=== PATIENT | male | born 1965 | race Asian ===

== ENCOUNTER 2018-05-29 01:38 | Inpatient (IN) | payer OTHER ==
[~2018-05-29] VITALS: Ht 167.6 cm; Wt 67.1 kg
--- NOTE | 2018-05-29 01:47 | ED PSYCHIATRIC COMPLAINT ---
History of Present Illness General Chief Complaint: Psychiatric Related Complaint Stated Complaint: BIBA CRISIS EVAL Source: patient Exam Limitations: no limitations Vital Signs & Intake/Output Vital Signs & Intake/Output Vital Signs Date Time Temp Pulse Resp B/P B/P Pulse O2 O2 Flow FiO2 Mean Ox Delivery Rate 05/29 0557 98.7 84 20 107/65 98 Room Air 05/29 0155 Room Air 05/29 0148 98.8 70 20 151/81 100 Room Air Allergies Uncoded Allergies: Allergy Other NKA Med Allergies NKDA Reconcile Medications No Known Home Medications Triage Note: BIBA EMS FROM HOME. PER EMS PT SENT A TEXT TO HIS SON SAYING HE WAS GOING TO HURT HIMSELF. PTS SON CALLED 911. PT ADMITS TO SI TO EMS. PT DENIES A PLAN. PT DENIES DRUGS AND ALCOHOL. PT CALM AND COOPERATIVE WHILE IN EMS CARE. Triage Nurses Notes Reviewed? yes Onset: Gradual Duration: week(s):, waxing and waning Timing: recent history Severity: moderate Associated Symptoms: suicidal ideation HPI: 52 yo gentleman h/o depression, prior psychiatric admission per his report due to overdose, presents with suicidality. He shares that he feels depressed due to his son not visiting him regularly. "He goes out with his friends... I try to feed him and his friends.... and I'm just so depressed." He notes he would try to hang himself or "take poison." He previously was on lexapro but is not taking anything at present. He denies overdose at present. He denies drugs/etoh/hallucinations/ homicidality. He is otherwise well. (Deisy VELAZCO,Hudson Osorio) Past History Medical History Any Pertinent Medical History? see below for history Psychiatric: depression Surgical History Surgical History: none Psychosocial History What is your primary language Indonesian Family History Hx Contributory? No (Hudson Olivas MD) Review of Systems Review of Systems Constitutional: Reports: no symptoms. EENTM: Reports: no symptoms. Respiratory: Reports: no symptoms. Cardiovascular: Reports: no symptoms. GI: Reports: no symptoms. Genitourinary: Reports: no symptoms. Musculoskeletal: Reports: no symptoms. Skin: Reports: no symptoms. Neurological/Psychological: Reports: no symptoms. Hematologic/Endocrine: Reports: no symptoms. Immunologic/Allergic: Reports: no symptoms. All Other Systems: Reviewed and Negative (Deisy VELAZCO,Hudson Osorio) Physical Exam Physical Exam General Appearance: well developed/nourished, mild distress Head: atraumatic Eyes: Bilateral: PERRL, EOMI. Ears, Nose, Throat: normal pharynx, normal ENT inspection, hearing grossly normal Neck: normal inspection, supple Respiratory: normal breath sounds Cardiovascular: regular rate/rhythm Gastrointestinal: soft, non-tender Extremities: normal range of motion Neurological/Psychiatric: no motor/sensory deficits, awake, flat, oriented x 3, depressed affect Appearance/Memory/Insight: appropriate appearance Behavoir/Eye Contact/Speech: cooperative Thoughts/Hallucinations: no apparent hallucination Skin: intact, normal color, warm/dry SAD PERSONS SAD PERSONS Response Value Male Sex? yes 1 Age <19 or >45 years? yes 1 Depression/Hopelessness? yes 2 Previous Attempts/Psych Care yes 1 Rational Thinking Loss? yes 2 Single//? yes 1 Social Support? has no support 1 Total 9 SAD PERSONS Done? yes (Deisy VELAZCO,Hudson Osorio) Progress Differential Diagnosis: depression, SI vs other. Plan of Care: Orders Procedure Date/time Status Regular Diet 05/30 B Active Regular Diet 05/29 L Active Admit to inpatient psych 05/29 0851 Active Patient Data - inpatient psych 05/29 0831 Active Admit to inpatient psych 05/29 0831 Active THYROID STIMULATING HORMONE 05/29 0831 Active EKG 05/29 0831 Active Add-on Test (ER Only) 05/29 0209 Active ACETOMINOPHEN 05/29 0204 Complete SALICYLATE 05/29 0204 Complete Continuous Observation Monitor 05/29 0147 Active URINE DRUG SCREEN FOR ER ONLY 05/29 0147 Complete ETHANOL 05/29 014 Complete COMPREHENSIVE METABOLIC PANEL 05/29 014 Complete CBC WITHOUT DIFFERENTIAL 05/29 014 Complete ED CRISIS PSYCH CONSULT 05/29 0147 Active Vital Signs 05/29 UNK Active Nursing Misc 05/29 UNK Active Alternative Nursing Therapy 05/29 UNK Active Activity/Ambulation 05/29 UNK Active Current Medications Sig/Isela Start time Last Medication Dose Stop Time Status Admin Al Hydroxide/Mg 30 ML Q4-6 PRN PRN 05/29 0830 UNVr Hydroxide (Maalox Plus) Hydroxyzine HCl 50 MG Q6-PRN PRN 05/29 0830 UNVr (Atarax) Ibuprofen 400 MG Q6-PRN PRN 05/29 08 UNVr (Motrin) Laboratory Tests 05/29/18 0424: Urine Opiates Screen < 100, Methadone Screen < 40, Barbiturate Screen < 60, Ur Phencyclidine Scrn < 6.00, Amphetamines Screen < 100, U Benzodiazepines Scrn < 85, Urine Cocaine Screen < 50, Urine Cannabis Screen < 5.00 05/29/18 0204: Anion Gap 8, Estimated GFR > 60, BUN/Creatinine Ratio 8.9, Glucose 90, Calcium 9.7, Total Bilirubin 0.5, AST 24, ALT 38, Alkaline Phosphatase 65, Total Protein 7.4, Albumin 4.3, Globulin 3.1, Albumin/Globulin Ratio 1.4, CBC w Diff NO MAN DIFF REQ, RBC 5.09, MCV 89.0, MCH 30.7, MCHC 34.5, RDW 13.1, MPV 7.8, Gran % 67.7, Lymphocytes % 22.6, Monocytes % 8.0, Eosinophils % 1.4, Basophils % 0.3, Absolute Granulocytes 8.7 H, Absolute Lymphocytes 2.9, Absolute Monocytes 1.0 H, Absolute Eosinophils 0.2, Absolute Basophils 0, Salicylates < 1.0, Acetaminophen < 10.0 L, Serum Alcohol < 10.0 Hand-Off Endorsed To: Hannah VELAZCO,Lonnie Metcalf Endorsed Time: 0700 Pending: consult, labs (Deisy VELAZCO,Hudson Osorio) Departure Departure Disposition: STILL A PATIENT Condition: Stable Clinical Impression Primary Impression: Depression Referrals: Unknown (PCP) Departure Forms: Customer Survey General Discharge Information Prescriptions: Current Visit Scripts No Known Home Medications (Deisy VELAZCO,Hudson Osorio) Psych Admission Note Psychiatric Admission: I have seen and evaluated DENNIS MILLER. I have also reviewed all the pertinent lab results and diagnostic results. DENNIS MILLER will be admitted to our inpatient Psychiatric unit for treatment and care. (Hannah VELAZCO,Lonnie Metcalf)
[2018-05-29 02:15] LABS: ABSOLUTE BASOPHIL COUNT 0 /CUMM (0.0-0.2); ABSOLUTE EOSINOPHIL COUNT 0.2 /CUMM (0.0-0.7); ABSOLUTE GRANULOCYTE CT 8.7 /CUMM (1.4-6.5); ABSOLUTE LYMPH COUNT 2.9 /CUMM (1.2-3.4); BASOPHIL % 0.3 % (0.0-2.0); EOSINOPHIL % 1.4 % (0-5); GRANULOCYTE % 67.7 % (42.2-75.2); HEMATOCRIT 45.3 % (42-52); MEAN CORPUSCULAR HGB 30.7 PG (27.0-31.0); MEAN CORPUSCULAR HGB CONC 34.5 G/DL (33.0-37.0); MEAN PLATELET VOLUME 7.8 FL (7.4-10.4); PLATELET COUNT 230 /CUMM (130-400); RBC DISTRIBUTION WIDTH 13.1 % (11.5-14.5); RED BLOOD CELL CT 5.09 /CUMM (4.70-6.10); WHITE BLOOD CELL COUNT 12.9 /CUMM (4.8-10.8)
--- NOTE | 2018-05-29 08:16 | ED PSYCH CRISIS CONSULTATION ---
Crisis Consult Basic Assessment Date of Consult: 05/29/18 Responsible Person/Accompanied By: self/biba Insurance Authorization: Insurance #1: Insurance name: SELF-PAY Phone number: Policy number: Group number: Authorization number: ED Provider: Patient's ED Provider: Deisy VELAZCO,Hudson Osorio Primary Care Physician: Patient's PCP: Unknown PCP's Phone Number: Current Psychiatrist: none Chief Complaint: Psychiatric Related Complaint Patient's Quote: I'm unappreciated. I feel rejected Present Illness: Pt is a 52 yo male biba early this morning after texting suicidal messages to son and . Pt reports his text to son stated "Suicide is only solution I got ". Pt reports a hx of depression including a suicide attempt in 2004 by pt intentionally injesting 22 tylenol pills. Pt was admitted to ICU then transfered to [facility]. Pt reports no additional attempts, levels of treatment or medications since that discharge. Pt reports past week feeling more depressed, frustrated and rejected by and son. He reports son is 19yo and goes to [employer] and is more interested in spending time with friends than with him. Pt also feels disconnected form who is an PAPER BAG PRESS OPERATOR. He reports she is always busy with work. Pt reports recently telling his he wants to and she responded by saying "pray harder so it will happen". 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 He reports generally staying at home and typically enjoys gardening but recently as lost all enjoyment of all prior interests. Pt reports poor sleep, waking up early, recent lack of appetite and no energy. Pt reports his depression with SI has been on and off but "this time is uncontrollable". Pt denies HI/AH/VH. Pt doesn't have guns. C-SSRS completed. Pt reports occasional etoh use and no substances. Pt presents as despondent, hopeless, helpless and anhedonic. Case reviewed with Dr Mcmanus. Pt meets inpatient psychiatric admission criteria. Pt hesitant to be admitted due to concerns regarding cost and missing work but eventually agrees to signing in voluntarily. Patient's Address: [address] [place] [address] Other Phone Number: Who Do You Live With? Family ( and son) Family/Informants Interviewed: collateral provided by pt Ashley [phone]. She reports he made a suicide attempt in 2004 and struggles with intermittant depression especially this time of year. She reports pt has mood swings and is easily irritable. She reports the last 2 days he has been stating and texting SI messages. Seems worse. Son called 911 after receiving texts last night. Allergies - Coded Allergies: No Known Allergies (05/29/18) Current Medications - No Known Home Medications Laboratory Results: Laboratory Tests 05/29/18 0941: TSH Pending 05/29/18 0424: Urine Opiates Screen < 100, Methadone Screen < 40, Barbiturate Screen < 60, Ur Phencyclidine Scrn < 6.00, Amphetamines Screen < 100, U Benzodiazepines Scrn < 85, Urine Cocaine Screen < 50, Urine Cannabis Screen < 5.00 05/29/18 0204: Anion Gap 8, Estimated GFR > 60, BUN/Creatinine Ratio 8.9, Glucose 90, Calcium 9.7, Total Bilirubin 0.5, AST 24, ALT 38, Alkaline Phosphatase 65, Total Protein 7.4, Albumin 4.3, Globulin 3.1, Albumin/Globulin Ratio 1.4, CBC w Diff NO MAN DIFF REQ, RBC 5.09, MCV 89.0, MCH 30.7, MCHC 34.5, RDW 13.1, MPV 7.8, Gran % 67.7, Lymphocytes % 22.6, Monocytes % 8.0, Eosinophils % 1.4, Basophils % 0.3, Absolute Granulocytes 8.7 H, Absolute Lymphocytes 2.9, Absolute Monocytes 1.0 H, Absolute Eosinophils 0.2, Absolute Basophils 0, Salicylates < 1.0, Acetaminophen < 10.0 L, Serum Alcohol < 10.0 Past History Past Medical History Psychiatric: depression Past Surgical History Surgical History: 1 Psychosocial History Strengths/Capabilities: 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 Psychiatric Treatment History Psych Treatment Psychiatric Treatment Yes Inpatient Treatment Yes Outpatient Treatment No Location of Treatment [facility] 2004 Reason for Treatment suicide attempt Dates of Treatment 2004 Response to Treatment pt reports no medication or mental health tx since 2004 suicide attempt Diagnosis by History: Depression Substance Use/Abuse History Drug Use/Abuse Substances Used/Abused Yes Substance Used/Abused Alcohol How much used/taken occasional/social Substance Abuse Treatment Substance Abuse Treatment Past Substance Abuse TX No Inpatient Treatment No Outpatient Treatment No Comments: pt reports occasional/social etoh use. denies substance use Current Mental Status Mental Status Orientation: Person, Place, Situation Affect: Depressed, Hopeless, Lonely, Sad Speech: WNL Neuro-vegetative: Anhedonia, Energy Decreased, Helpless, Loss of Interest, Sleep Disturbance Appearance Appearance- Dress/Hygiene: hospital scrubs; adequately groomed; sitting up in bed; sad affect; low energy Behaviors Thought Process: WNL Thought Content: WNL Memory: WNL Insight: Fair SI/HI Risk Assessment Past Suicidal Ideation/Attempts Yes Current Suicidal Ideation/Att Yes Past Homicidal Ideation/Att: No Current Homicidal Ideation/Attempts No Degree of Intent: Thoughts/No Intent Danger To: Self Risk Factors: history of suicide atmpts, SA/MH hospitalized, male Lethality Ratin PTSD Checklist PTSD Done? patient declined ED Management Sitter: Yes Restraints: No DSM5/PS Stressors/Medical Prob Diagnosis' (DSM 5, Stressors, Medical): Unspecified Depression F 32.9 Current GAF: 25 Comments: pt is depressed, hopeless with SI. primary stressors related to relationship issues with and son. Departure Disposition Psych Medical Clearance Date: 05/29/18 Medically Cleared at: 0715 Time Started: 0715 Time Ended: 08 Psychiatrist Consulted: Melyssa Mcmanus MD Date Disposition Established: 05/29/18 Time Disposition Established: 844 Plan for Disposition - Modality: Inpatient Psychiatry Facility: [facility] Rationale for Disposition: mood stabilization; medication assessment Type of IP Admission: Voluntary Referrals Unknown
[2018-05-29 10:49] VITALS: BP 130/73
--- NOTE | 2018-05-29 11:19 | CPS PROVIDER INIT ASMT PSYCH ---
Psychiatric Admission Auto Mechanics Instructor's Note Reviewed: Yes Patient Seen and Examined: Yes Identifying Information: Pt is a 52-year-old male biba early this morning after texting suicidal messages to son and . Chief Complaint: I'm unappreciated. I feel rejected Reaction to Hospitalization: admitted voluntarily History of Present Illness Onset of Illness: Pt is a 52-year-old male biba early this morning after texting suicidal messages to son and . Pt reports his text to son stated "Suicide is only solution I got". Pt reports a hx of depression including a suicide attempt in 2004 by pt intentionally injesting 22 tylenol pills. Pt was admitted to ICU then transfered to [facility]. Pt reports no additional attempts, levels of treatment or medications since that discharge. Pt reports past week feeling more depressed, frustrated and rejected by and son. He reports son is 19yo and goes to [employer] and is more interested in spending time with friends than with him. Pt also feels disconnected form who is an BICYCLE II ASSEMBLER. He reports she is always busy with work. Pt reports recently telling his he wants to and she responded by saying "pray harder so it will happen". 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 He reports generally staying at home and typically enjoys gardening but recently as lost all enjoyment of all prior interests. Circumstances Leading to Admission: Pt is a 52 yo male biba early this morning after texting suicidal messages to son and . Pt reports his text to son stated "Suicide is only solution I got ". Pt reports a hx of depression including a suicide attempt in 2004 by pt intentionally injesting 22 tylenol pills. Pt was admitted to ICU then transfered to [facility]. Pt reports no additional attempts, levels of treatment or medications since that discharge. Pt reports past week feeling more depressed, frustrated and rejected by and son. He reports son is 19yo and goes to [employer] and is more interested in spending time with friends than with him. Pt also feels disconnected form who is an BICYCLE II ASSEMBLER. He reports she is always busy with work. Pt reports recently telling his he wants to and she responded by saying "pray harder so it will happen". 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 He reports generally staying at home and typically enjoys gardening but recently as lost all enjoyment of all prior interests. Problem(s) Justifying Need for Admission: Thoughts of suicide Past Psychiatric History Past Diagnosis(es)- if any: ? Depression Past Precipitating Factors- if any: The patient's 19-year-old leaving for college - Include inpatient and outpatient treatment Treatment History: The patient has not had any significant psychiatric treatment. Looks like he had a visit to the emergency room at [facility] and was discharged home at one time. He reported that he was taking the low-dose Lexapro prescribed by his History of Suicide Attempts or Gestures Denied history of actual attempts but reported that he has had thoughts of suicide before Substance Abuse History: Denied abusing alcohol, denied using illicit substances Allergies: Coded Allergies: No Known Allergies (05/29/18) Home Med List: Has not been on any psychotropics for a while - Include any medical condition(s) that may - impact the patient's recovery/remission Past History Medical History Neurological: NONE EENT: NONE Cardiovascular: tachycardia Respiratory: NONE Gastrointestinal: NONE Hepatic: NONE Renal: NONE Musculoskeletal: chronic back pain Psychiatric: depression Endocrine: NONE Blood Disorders: NONE Cancer(s): NONE ASSOCIATE CHIEF NURSE/Reproductive: NONE History of MRSA: No History of VRE: No History of CDIFF: No Isolation History: Standard Surgical History Surgical History: non-contributory Psychiatric Family/Social Hx Family History Psychiatric Illness: Uncle (unknown diagnosis) Substance Use: denied Suicides: Denied suicides in the family Social History Living Situation: , living with family Significant Relationships (family/friends): and 19-year-old son Education: some college 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 - #1 Recognizing dangerous situations. - #2 Coping Skills. - #3 Basic information about quitting. Status of Tobacco Cessation Counseling: #1, #2 AND #3 Completed Cessation Med Status Nicotine Gum Ordered Alcohol Screening - ETOH screen POS if BAL >=80 or Audit-C>= M4/F3 Audit-C Score from Diag Assess: 0 Blood Alcohol Level: Laboratory Tests 05/29 0204 Toxicology Serum Alcohol (<10 MG/DL) < 10.0 Alcohol Use Screening Results: Neg per Audit C &/or BAL - If ETOH counseling indicated - the following topics are required. - #1 Express concern about the patient's - drinking at unhealthy levels, include informing - of national norms for moderate drinking: - men <= 14 drinks/week, max 4 drinks/occasion - women <= 7 drinks/week, max 3 drinks/occasion - #2 Providing feedback, including linking alcohol to - negative physical effects (liver injury, hypertension) - negative emotional effects (relationship problems and - depression) - negative occupational consequences (reduced work - performance) - #3 Advising the patient to abstain from alcohol or - to drink below national norms for moderate drinking - (as listed above). Status of ETOH Use Counseling: N/A B/C NO ETOH Use Metabolic Screening - Screen if on a Neuroleptic Medication - Metabolic screening should include: - Blood Pressure, BMI, Glucose or Hgb A1c, & a - Lipid profile from within the past 365 days. Metabolic Screening Not Applicable, patient not on a neuroleptic. Exam and Plan Mental Status Examination Ambulation Status: Steady gait Appearance: Unremarkable appearance Attitude towards examiner: Calm and cooperative Psychomotor activity: Normal psychomotor activity Behavior: No abnormal behaviors Quality of speech: Normal speech, not pressured Affect: Good range of affect Mood: Depressed Suicidal Ideation: Acknowledged having thoughts of suicide Homicidal Ideation: Denied thoughts of violence or homicide Hallucinations: Denied hallucinations Paranoid/Delusional Material: Denied feeling paranoid, there were no delusions during the interview Difficulties with thought organization: Did not have difficulties with thought organization, he was coherent Insight: Seems to have reasonable insight Judgment: Good judgment in hypothetical situations Orientation: Alert and oriented to time, place, and person. Cognition: Did not have any difficulties with information processing. Seems to have good attention and concentration. Memory Function: No gross deficits in short-term memory. Estimate of intellectual functioning: Average Assets/Strengths Patient Identified Assets/Strengths: The patient is likable, hard-working, and a very loving father. Impression/Plan Impression and Plan: 52-year-old Colombian Icelandic who was admitted because of thoughts of suicide. The patient has no history of previous inpatient psychiatric admissions and no history of suicide attempts. No significant treatment except for taking Lexapro 5 mg daily for a short period of time. He presents with depressive symptoms and suicidal ideation mostly because his only son is going back to college and was not interested in spending time with patient. - Include all active medical diagnosis that require tx DSM 5 Diagnosis(es): Major depressive disorder Adjustment disorder with depressed mood - Initial Tx Plan for Active Psych & Medical Conditions Treatment Plan: Inpatient psychiatric care with safety checks every 15 minutes Nursing assessments and vital signs Group therapy, activities therapy, and milieu therapy, Biopsychosocial assessment, collateral information, and aftercare planning by social work Psychiatrist to evaluate patient on a daily basis. Reduce sertraline to 25 mg daily (due to nausea and vomitting) - Factors that would help patient function - in a less restrictive setting. Factors: Patient will be discharge once he has 2 consecutive days without thoughts of suicide.
--- NOTE | 2018-05-29 11:42 | IP CRISIS DIAG ASSESS PSYCH ---
See Addendum Shoaib Mitchell 05/29/18 1139: Diagnostic Assessment Basic Assessment Insurance Authorization: Insurance #1: Insurance name: [employer] [place] ( ) Phone number: Policy number: [id number] Group number: [id number] Authorization number: Ref# [id number] Switching Clerk will call on Friday to complete clinical authorization Primary Care Physician: Patient's PCP: Jorge VELAZCO,Neymar Palacios PCP's Patient's Quote: I'm unappreciated. I feel rejected Present Illness: Pt is a 52 yo male biba early this morning after texting suicidal messages to son and . Pt reports his text to son stated "Suicide is only solution I got ". Pt reports a hx of depression including a suicide attempt in 2004 by pt intentionally injesting 22 tylenol pills. Pt was admitted to ICU then transfered to [facility]. Pt reports no additional attempts, levels of treatment or medications since that discharge. Pt reports past week feeling more depressed, frustrated and rejected by and son. He reports son is 19yo and goes to [employer] and is more interested in spending time with friends than with him. Pt also feels disconnected form who is an MOBILITY DEVELOPER. He reports she is always busy with work. Pt reports recently telling his he wants to and she responded by saying "pray harder so it will happen". 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 He reports generally staying at home and typically enjoys gardening but recently as lost all enjoyment of all prior interests. Pt reports poor sleep, waking up early, recent lack of appetite and no energy. Pt reports his depression with SI has been on and off but "this time is uncontrollable". Pt denies HI/AH/VH. Pt doesn't have guns. C-SSRS completed. Pt reports occasional etoh use and no substances. Pt presents as despondent, hopeless, helpless and anhedonic. Case reviewed with Dr Mcmanus. Pt meets inpatient psychiatric admission criteria. Pt hesitant to be admitted due to concerns regarding cost and missing work but eventually agrees to signing in voluntarily. Patient's Address: [address] [place] [id number] Other Phone Number: Who Do You Live With? Family ( and son) Feel Safe Where You Live? Yes Feel Safe in Your Relationship Yes Marital Status: Do You Have Children? Yes Ages? 19 Primary Language? Lebanese Language(s) Spoken At Home: Lebanese Family/Informants Interviewed: collateral provided by pt Ashley . She reports he made a suicide attempt in 2004 and struggles with intermittant depression especially this time of year. She reports pt has mood swings and is easily irritable. She reports the last 2 days he has been stating and texting SI messages. Seems worse. Son called 911 after receiving texts last night. Allergies - Coded Allergies: No Known Allergies (05/29/18) Current Medications - No Known Home Medications Consequences of Psych Med Use: no reported medication use Lab Results: Laboratory Tests 05/29/18 0941: TSH 0.655 05/29/18 0424: Urine Opiates Screen < 100, Methadone Screen < 40, Barbiturate Screen < 60, Ur Phencyclidine Scrn < 6.00, Amphetamines Screen < 100, U Benzodiazepines Scrn < 85, Urine Cocaine Screen < 50, Urine Cannabis Screen < 5.00 05/29/18 0204: Anion Gap 8, Estimated GFR > 60, BUN/Creatinine Ratio 8.9, Glucose 90, Calcium 9.7, Total Bilirubin 0.5, AST 24, ALT 38, Alkaline Phosphatase 65, Total Protein 7.4, Albumin 4.3, Globulin 3.1, Albumin/Globulin Ratio 1.4, CBC w Diff NO MAN DIFF REQ, RBC 5.09, MCV 89.0, MCH 30.7, MCHC 34.5, RDW 13.1, MPV 7.8, Gran % 67.7, Lymphocytes % 22.6, Monocytes % 8.0, Eosinophils % 1.4, Basophils % 0.3, Absolute Granulocytes 8.7 H, Absolute Lymphocytes 2.9, Absolute Monocytes 1.0 H, Absolute Eosinophils 0.2, Absolute Basophils 0, Salicylates < 1.0, Acetaminophen < 10.0 L, Serum Alcohol < 10.0 Toxicology Screen Completed? 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 Psychiatric Treatment History Psych Treatment Psychiatric Treatment Yes Inpatient Treatment Yes Outpatient Treatment No Location of Treatment [facility] 2004 Reason for Treatment suicide attempt Dates of Treatment 2004 Response to Treatment pt reports no medication or mental health tx since 2004 suicide attempt Diagnosis by History: Depression Risk Factors: history of suicide atmpts, SA/MH hospitalized, male Substance Use/Abuse History Drug Use/Abuse minimum 12mo Hx Substances Used/Abused Yes Substance Used/Abused Alcohol How much used/taken occasional/social Substance Abuse Treatment Substance Abuse Treatment Past Substance Abuse [place] No Inpatient Treatment No Outpatient Treatment No Education History Highest Level of Education: bachelor's degree Preferred Learning Style: visual, auditory, experiential Current Mental Status Mental Status Orientation: Person, Place, Situation Affect: Depressed, Hopeless, Lonely, Sad Speech: WNL Neuro-vegetative: Anhedonia, Energy Decreased, Helpless, Loss of Interest, Sleep Disturbance Appearance Appearance- Dress/Hygiene: hospital scrubs; adequately groomed; sitting up in bed; sad affect; low energy Behaviors Thought Process: WNL Thought Content: WNL Memory: WNL Insight: Fair SI/HI Risk Assessment - Minimum 6mo History- Past Suicidal Ideation/Attempts Yes Current Suicidal Ideation/Att Yes Past Homicidal Ideation/Att: No Current Homicidal Ideation/Attempts No Degree of Intent: Thoughts/No Intent Danger To: Self Risk Factors: history of suicide atmpts, SA/MH hospitalized, male Lethality Ratin Needs/Init TX Plan/Goals: Psychiatric Evaluation Medication Assessment Individual, Family and Group Meetings Coordinated Discharge Planning AUDIT-C Questionnaire: AUDIT-C Questionnaire: Response Value ETOH use in the past year Monthly or less 1 # drinks typical/day Doesn't Drink 0 6 or > drinks per occasion Never 0 Total 1 DSM5/PS Stressors/Medical Prob Diagnosis' (DSM 5, Stressors, Medical): Unspecified Depression F 32.9 family relationships Current GAF: 25 Comments: pt is depressed, hopeless with SI. primary stressors related to relationship issues with and son. Thomas Boyd 05/29/18 1147: Diagnostic Assessment Basic Assessment Insurance Authorization: Insurance #1: Insurance name: [facility] Phone number: Policy number: [id number] Group number: [id number] Authorization number: Primary Care Physician: Patient's PCP: Jorge VELAZCO,Neymar T. PCP's Patient's Quote: "I'm unappreciated. I feel rejected" Present Illness: The following was taken directly from the crisis note Patient's Quote: I'm unappreciated. I feel rejected Present Illness: Pt is a 52 yo male biba early this morning after texting suicidal messages to son and . Pt reports his text to son stated "Suicide is only solution I got ". Pt reports a hx of depression including a suicide attempt in 2004 by pt intentionally injesting 22 tylenol pills. Pt was admitted to ICU then transfered to [facility]. Pt reports no additional attempts, levels of treatment or medications since that discharge. Pt reports past week feeling more depressed, frustrated and rejected by and son. He reports son is 19yo and goes to [employer] and is more interested in spending time with friends than with him. Pt also feels disconnected form who is an MOBILITY DEVELOPER. He reports she is always busy with work. Pt reports recently telling his he wants to and she responded by saying "pray harder so it will happen". 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 He reports generally staying at home and typically enjoys gardening but recently as lost all enjoyment of all prior interests. Pt reports poor sleep, waking up early, recent lack of appetite and no energy. Pt reports his depression with SI has been on and off but "this time is uncontrollable". Pt denies HI/AH/VH. Pt doesn't have guns. C-SSRS completed. Pt reports occasional etoh use and no substances. Pt presents as despondent, hopeless, helpless and anhedonic. Case reviewed with Dr Mcmanus. Pt meets inpatient psychiatric admission criteria. Pt hesitant to be admitted due to concerns regarding cost and missing work but eventually agrees to signing in voluntarily. Patient's Address: [address] [place] [address] Other Phone Number: Who Do You Live With? Significant Other Feel Safe Where You Live? Yes Feel Safe in Your Relationship Yes Marital Status: Do You Have Children? Yes Ages? 19 Primary Language? Lebanese Language(s) Spoken At Home: Lebanese Family/Informants Interviewed: no family/collateral ID'd Consequences of Psych Med Use: none reported Lab Results: Laboratory Tests 05/29/18 0941: TSH 0.655 05/29/18 0424: Urine Opiates Screen < 100, Methadone Screen < 40, Barbiturate Screen < 60, Ur Phencyclidine Scrn < 6.00, Amphetamines Screen < 100, U Benzodiazepines Scrn < 85, Urine Cocaine Screen < 50, Urine Cannabis Screen < 5.00 05/29/18 0204: Anion Gap 8, Estimated GFR > 60, BUN/Creatinine Ratio 8.9, Glucose 90, Calcium 9.7, Total Bilirubin 0.5, AST 24, ALT 38, Alkaline Phosphatase 65, Total Protein 7.4, Albumin 4.3, Globulin 3.1, Albumin/Globulin Ratio 1.4, CBC w Diff NO MAN DIFF REQ, RBC 5.09, MCV 89.0, MCH 30.7, MCHC 34.5, RDW 13.1, MPV 7.8, Gran % 67.7, Lymphocytes % 22.6, Monocytes % 8.0, Eosinophils % 1.4, Basophils % 0.3, Absolute Granulocytes 8.7 H, Absolute Lymphocytes 2.9, Absolute Monocytes 1.0 H, Absolute Eosinophils 0.2, Absolute Basophils 0, Salicylates < 1.0, Acetaminophen < 10.0 L, Serum Alcohol < 10.0 Past History Past Medical History Medical History: None/Denies Abuse/Trauma History Trauma History/Current Trauma: Denies Legal History Current Legal Status: none Have you ever been arrested? No Number of Arrests: [address] Dates: none reported Front End Developer Javascript Html Css none reported Psychosocial History Strengths/Capabilities: hard working and seems motived for treatment Physical Limitations (Interventions): none reported Psychiatric Treatment History Psych Treatment Psychiatric Treatment No Inpatient Treatment Yes (2004 [facility] suicide attempt) Outpatient Treatment No Location of Treatment [facility] Reason for Treatment Depression and suicidal ideations Dates of Treatment 05/29/19 to Risk Factors: history of suicide atmpts, poor impulse control, limited support Substance Use/Abuse History Drug Use/Abuse minimum 12mo Hx Substances Used/Abused No Substance Abuse Treatment Substance Abuse Treatment Past Substance Abuse [place] No Inpatient Treatment No Outpatient Treatment No Location of Treatment N/A Reason for Treatment N/A Response to Treatment N?A Sexual History Sexually Active Yes # of partners 1 Sexual Orientation Heterosexual Use of Protection No Sexual Concerns: N/A Education History Highest Level of Education: some college Preferred Learning Style: visual Current Mental Status Mental Status Orientation: Person, Place, Situation Affect: Appropriate Speech: WNL Neuro-vegetative: WNL Appearance Appearance- Dress/Hygiene: The patient appeared well groomed. He was wearing hospital scrubs Behaviors Thought Process: WNL Thought Content: WNL Memory: WNL Insight: WNL SI/HI Risk Assessment - Minimum 6mo History- Past Suicidal Ideation/Attempts Yes Current Suicidal Ideation/Att No Past Homicidal Ideation/Att: No Current Homicidal Ideation/Attempts No Degree of Intent: Thoughts/No Intent Danger To: Self Gravely Disabled: Poor Judgment Risk Factors: high anxiety/distress, history of suicide atmpts, limited support Lethality Ratin AUDIT-C Questionnaire: AUDIT-C Questionnaire: Response Value ETOH use in the past year 2-4 times/week 3 Total 3
--- NOTE | 2018-05-29 12:14 | SOCIAL WORKER SOCIAL HX PSYCH ---
Thomas Boyd 05/29/18 1213: Social History Basic Assessment Insurance Authorization: Insurance #1: Insurance name: [employer] [place] Phone number: Policy number: [id number] Group number: [id number] Authorization number: Curr Source of Income/Entitlements: employment Primary Care Physician: Patient's PCP: Neymar Patel MD PCP's Present Problem: The following note was taken directly from crisis Patient's Quote: I'm unappreciated. I feel rejected Present Illness: Pt is a 52 yo male biba early this morning after texting suicidal messages to son and . Pt reports his text to son stated "Suicide is only solution I got ". Pt reports a hx of depression including a suicide attempt in 2004 by pt intentionally injesting 22 tylenol pills. Pt was admitted to ICU then transfered to [facility]. Pt reports no additional attempts, levels of treatment or medications since that discharge. Pt reports past week feeling more depressed, frustrated and rejected by and son. He reports son is 19yo and goes to [employer] and is more interested in spending time with friends than with him. Pt also feels disconnected form who is an MONUMENT INSTALLER. He reports she is always busy with work. Pt reports recently telling his he wants to and she responded by saying "pray harder so it will happen". 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 He reports generally staying at home and typically enjoys gardening but recently as lost all enjoyment of all prior interests. Pt reports poor sleep, waking up early, recent lack of appetite and no energy. Pt reports his depression with SI has been on and off but "this time is uncontrollable". Pt denies HI/AH/VH. Pt doesn't have guns. C-SSRS completed. Pt reports occasional etoh use and no substances. Pt presents as despondent, hopeless, helpless and anhedonic. Case reviewed with Dr Mcmanus. Pt meets inpatient psychiatric admission criteria. Pt hesitant to be admitted due to concerns regarding cost and missing work but eventually agrees to signing in voluntarily. Primary Language? Greenlandic Language(s) Spoken At Home: Greenlandic Living Situation Rents or Owns Home? owns Feel Safe Where You Are Living Yes Feel Safe in Relationships? Yes Allergies - Coded Allergies: No Known Allergies (05/29/18) Current Medications - No Known Home Medications Consequences of Psych Med Use: none reported Past History Past Medical History Neurological: NONE EENT: NONE Cardiovascular: tachycardia Respiratory: NONE Gastrointestinal: NONE Hepatic: NONE Renal: NONE Musculoskeletal: chronic back pain Psychiatric: depression Endocrine: NONE Blood Disorders: NONE Cancer(s): NONE ELEVATOR BUILDER/Reproductive: NONE Past Surgical History Surgical History: none /Family History Place/Country of Origin: [facility] Childhood Family Constellation: mom, dad, brothers and sisters Primary Childhood Caretakers: mother Family Life During Childhood: "broken family" No memories of the family together DCF Involvement? No Mother's Age (Current/): 59 Relationship w/Mother: "They were close" Father's Age (Current/): 74 Relationship w/Father: "we talk but are not close Any Sibling(s)? Yes Sibling's Gender(s)/Age(s): male Sibling 1:, male Sibling 2:, female Sibling 3:, female Sibling 4: Relationship w/Sibling(s): "close" Relationship w/Friends: "good" Family Psych/Sub Abuse/Add Hx: Uncle had mental health condition not sure what it was Other Comments: Father drank Abuse/Trauma History Trauma History/Current Trauma: Denies History of Trauma/Abuse Treatment? No Abuse/Trauma Treatment: N/A Legal History Legal Guardian/Address/Phone: N/A Current Legal Status: none Pending Court Dates: N/A Have you ever been arrested No Number of Arrests: 0 Hx of Juvenile Legal Charges? No Hx of Adult Legal Charges? No Civil Proceedings: none reported Domestic Relations Court: none reported Child Protective Serv Involvmnt none reported Geospatial Developer none reported Psychosocial History Primary Support System: Strengths/Capabilities: hard working and seems motived for treatment Weaknesses: poor judgment and poor impulse control Physical Limitations (Interventions): none reported Last Physical: this year History of Seizures? No History of Blackouts? No ADL Limitations: N/A Rea/Social/Peer Relations good Meaningful Activities: gardening and listening to music Childhood Yazdanism: Restorationist Current Zoroastrianism Affiliation: Restorationist Is Spirituality Important to You? yes Patient's Ethnicity: -[place] Cultural/Ethnic Issues: N/A Are There Developmental Issues? 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: [facility] Treatment of Prior Episodes: 2005 [place] Inpatient Diagnosis: Depression Risk Factors: history of suicide atmpts, poor impulse control, limited support Substance Use/Abuse History Drug Use/Abuse:Min 12 mo hx Substance Used/Abused Alcohol How much used/taken occasional/social Substance Abuse Treatment Substance Abuse Treatment Inpatient Treatment No Outpatient Treatment No Location of Treatment N/A Reason for Treatment N/A Response to Treatment N?A Sexual History Sexually Active Yes # of partners 1 Sexual Orientation Heterosexual Use of Protection No Sexual Concerns: N/A Education History Highest Level of Education: some college Number of College Years: 3 College Degree/Major: none Preferred Learning Style: visual HX of Learning Difficulties: None reported Barriers to Learning: None reported Employment History Employment 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 of Jobs in Last 5 Years: 1 Attendance: Above average Performance: Average History Have You Been in The ? No Current Mental Status Mental Status Orientation: Person, Place, Situation Affect: Appropriate Speech: WNL Neuro-vegetative: WNL Appearance Appearance- Dress/Hygiene: The patient appeared well groomed. He was wearing hospital scrubs Behaviors Thought Process: WNL Thought Content: WNL Memory: WNL Insight: WNL SI/HI Risk Assessment Past Suicidal Ideation/Attempts Yes Current Suicidal Ideation/Att No Past Homicidal Ideation/Att: No Current Homicidal Ideation/Attempts No Degree of Intent: Thoughts/No Intent Danger To: Self Gravely Disabled: Poor Judgment Lethality Ratin - Conclusion and Recommendations for treatment - and discharge planning Summary: Pt is a 52 yo male who was brought to the hospital after texting suicidal messages to his son and . Pt reports a hx of depression including a suicide attempt in 2004 by pt intentionally injesting 22 tylenol pills. Pt reports past week feeling more depressed, frustrated and rejected by and son. He reports she is always busy with work. 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 He reports generally staying at home and typically enjoys gardening but recently as lost all enjoyment of all prior interests. Pt denies HI/AH/VH. Pt reports occasional etoh use and no substances. He seems motived for tretment. Santa Cristobal 05/29/18 1633: Current Mental Status - Conclusion and Recommendations for treatment - and discharge planning
--- NOTE | 2018-05-29 15:17 | History & Physical ---
General Information and HPI MD Statement: I have seen and personally examined DENNIS MILLER and documented this H&P. The patient is a 52 year old M who presented with a patient stated chief complaint of [ suicidal ideation]. 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 Pt admitted for suicidal ideation. Pt does not have any active medical issues. 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 EENTM: Denies: eye pain. Cardiovascular: Denies: chest pain, palpitations. Respiratory: Denies: cough, short of breath. GI: Denies: abdominal pain. Musculoskeletal: Denies: joint pain. Neurological/Psychological: Reports: depressed. Exam & Diagnostic Data Last 24 Hrs of Vital Signs/I&O Vital Signs Date Time Temp Pulse Resp B/P B/P Pulse O2 O2 Flow FiO2 Mean Ox Delivery Rate 05/29 1049 98.2 62 130/73 05/29 1007 98.4 77 18 119/70 98 Room Air Room Air 05/29 0557 98.7 84 20 107/65 98 Room Air 05/29 0155 Room Air 05/29 0148 98.8 70 20 151/81 100 Room Air Intake & Output 05/29 1600 05/29 0800 05/29 0000 Intake Total 0 Output Total Balance 0 Intake, Oral 0 Patient 67.132 kg 68.039 kg Weight Physical Exam General Appearance Alert, Oriented X3, Cooperative, No Acute Distress HEENT Atraumatic, EOMI Cardiovascular Regular Rate, Normal S1, Normal S2 Lungs Clear to Auscultation, Normal Air Movement Abdomen Normal Bowel Sounds Extremities No Cyanosis Assessment/Plan Assessment: Suicidal ideation- plan per pscyhitatry. no medical issues . As Ranked By This Provider Problem List: 1. Depression 2. Suicidal ideation Miscellaneous Miscellaneous Documentation Attending Case Discussed With: Melyssa Mcmanus MD Primary Care Physician: Jorge VELAZCO,Neymar Palacios Patient sees these Specialists none Level of Patient Care: JANETH Pack
--- NOTE | 2018-05-29 16:24 | SOCIAL WORKER PROG NOTE PSYCH ---
Thomas Boyd 05/29/18 1620: Social Work Progress Note Progress Note I Thomas Deb met with Ramez this morning to complete his social history. He appeared well groomed and wore clothing appropriate for the weather. The patient was engaged, had positive affect and made contact during the session. He was hesitant about starting medications but was willing to try them. Ramez discussed how his son being away at college is difficult to accept..
--- NOTE | 2018-05-29 16:53 | SOCIAL WORKER PROG NOTE PSYCH ---
Social Work Progress Note Progress Note This clinical writer met with patient. Patient reported ongoing depression and is unable to identify any triggers for his worsening depression. He described his mood as "getting there" and stated that his depression "comes and goes." He states that he thought about hanging himself, however, did not go through with this. Patient stated that he woke up on Friday and was feeling frustrated, found nothing to be helpful and isolated. Patient reported occassional "social drinking" without any consequences associated with his use. He states that when he does drink socially, he drinks approximately 2-3 beers. Patient denied HI/ hallucinations. He denied having any access to guns. He stated that he lives with his and son and is agreeable to a family meeting. He would like to attend [facility] if there is an evening group that does not impact his work schedule.
[2018-05-29 20:03] VITALS: BP 119/73
[2018-05-30 07:45] VITALS: BP 122/76
[2018-05-30 20:08] VITALS: BP 135/82
[2018-05-31 08:19] VITALS: BP 128/75
--- NOTE | 2018-05-31 08:33 | CP SOUTH PROGRESS NOTE PSYCH ---
Psych (Inpt) Progress Note Progress Note Vital Signs Date Time Temp Pulse Resp B/P B/P Pulse O2 FiO2 05/31 819 98.7 67 128/75 05/30 2008 99.2 68 135/82 Mental Status: Steady gait, calm and cooperative, Normal psychomotor activity, no abnormal behaviors, Normal speech, not pressured, Good range of affect, Depressed, denied having thoughts of suicide since yesterday, Denied thoughts of violence or homicide, Denied hallucinations, Denied feeling paranoid, there were no delusions during the interview, Did not have difficulties with thought organization, he was coherent, seems to have reasonable insight, good judgment in hypothetical situations Alert and oriented to time, place, and person. He did not have any difficulties with information processing. Seems to have good attention and concentration. No gross deficits in short-term memory. Assessment: 52-year-old [place]i who was admitted because of thoughts of suicide. The patient has no history of previous inpatient psychiatric admissions and no history of suicide attempts. No significant treatment except for taking Lexapro 5 mg daily for a short period of time. He presents with depressive symptoms and suicidal ideation mostly because his only son is going back to college and was not interested in spending time with patient. The patient had an episode of vomiting yesterday after breakfast, I thought it was related to the Zoloft and it was cut down to 25 mg. However, today he had another episode of vomiting after breakfast even though he did not take the Zoloft. So it is not clear whether the vomiting was related to the Zoloft and not however I give him Zofran 4 mg to take with 25 mg of Zoloft this morning DSM 5 Diagnosis(es): Major depressive disorder Adjustment disorder with depressed mood Treatment Plan: Continue sertraline to 25 mg daily Zofran 4 mg once and every 6 hours as needed for nausea or vomiting. Impression and Plan: 52-year-old [place]i who was admitted because of thoughts of suicide. The patient has no history of previous inpatient psychiatric admissions and no history of suicide attempts. No significant treatment except for taking Lexapro 5 mg daily for a short period of time. He presents with depressive symptoms and suicidal ideation mostly because his only son is going back to college and was not interested in spending time with patient. - Include all active medical diagnosis that require tx DSM 5 Diagnosis(es): Major depressive disorder Adjustment disorder with depressed mood - Initial Tx Plan for Active Psych & Medical Conditions Treatment Plan: Inpatient psychiatric care with safety checks every 15 minutes Nursing assessments and vital signs Group therapy, activities therapy, and milieu therapy, Biopsychosocial assessment, collateral information, and aftercare planning by social work Psychiatrist to evaluate patient on a daily basis. Reduce sertraline to 25 mg daily (due to nausea and vomitting)
[2018-05-31 19:38] VITALS: BP 140/77
[2018-06-01 07:49] VITALS: BP 118/68
--- NOTE | 2018-06-01 15:09 | CP SOUTH PROGRESS NOTE PSYCH ---
Psych (Inpt) Progress Note Progress Note Include the following elements, when applicable: Involvement in the active treatment of the patient with behavioral observations of the patient and the patient's response to the treatment. Review of the ongoing treatment process in the context of the treatment plan. Indication of how multi-disciplinary staff members are carrying out the treatment plan. Plans for future interventions and recommendations for revision of the treatment plan. Liaison with other physicians/providers. Progress Note: "I am okay, a little depressed" The patient reports that he is sleeping and eating well. His mood remains low. He feels guilty about the text message he sent his son indicating that suicide was the only option for him. He does not currently want to . He reports feelings of hopelessness stating that he feels guilty and worthless. He relies on others for validation. He feels that his and his son do not appreciate him. The patient is yarsanism which is a protective factor for him. He reports feelings of anxiety. It was reported that the patient had what may be an allergic reaction to sertraline. He reports that the hives he had earlier in his admission are a frequent occurrence with him. He had them prior to admission. He tolerated sertraline well today with no nausea. Of note the patient is a smoker but is not using nicotine replacement therapy as he would like to try and stop smoking with out substitution.. Mental status examination: The patient is short, 52-year-old male of slight build. He was alert and oriented and his gait was steady. Eye contact was good. He appeared anxious during the interview. Speech was normal in rate, rhythm, volume and tone. He described his mood as "a bit depressed", his affect was sad and anxious. He was not suicidal or homicidal but reported feelings of hopelessness. Thought process was normal in tempo and stream. Thought form was concrete. There are no delusions or obsessions. Attention and concentration are fair. There is no perceptual abnormality. Intelligence level is average, fund of knowledge average, use of language appropriate. Recent and remote memory are intact. The patient's insight is fair. Judgment is unimpaired. Assessment: The patient was admitted for suicidal ideation in the context of depression and anxiety. The precipitant appears to have been largely related to his son who is 19 and individuating appropriately from the family. The patient reports that although he can accept this intellectually he still wishes that his son would want to be with him more and do things as a family. The son is an only child. The patient describes himself as anxious at baseline. He remains depressed and anxious with feelings of hopelessness and guilt. Reason for ongoing admission: The patient remains depressed and anxious. He reports feeling unappreciated by his closest supports and feels hopeless and worthless. He is at risk of suicide if discharged prematurely. Current medications: Sertraline 25 mg p.o. daily Nicotine 2 mg every 2 hours p.o. as needed craving [not using] Plan: -Continue sertraline at 25 mg for one further day to assess tolerability. If the patient tolerates it, will increase to 50 and then 75 mg to target depression and anxiety -Discussed the possibility of taking medication to help with anxiety. The patient does not tolerate antihistamines. He declines routine medication for anxiety but agrees to use one on an as-needed basis if necessary. Gabapentin 300 mg ordered every 8 as needed anxiety. -Family meeting will be arranged. -The patient's distress tolerance is very poor. He would benefit from this DBT skills during his admission. -Ideally the patient will attend an intensive outpatient program on discharge.
--- NOTE | 2018-06-01 18:38 | SOCIAL WORKER PROG NOTE PSYCH ---
Social Work Progress Note Progress Note This residential mortgage underwriter met with patient. He described his mood as "ok" and appeared to be much brighter than Friday. Patient denied SI/HI/AH/VH. He reported feeling more relaxed, decreased stress (due to being at the hospital) and stating that he is staying occupied on this unit. We discussed IOP, however, patient was concerned about conflict with his work schedule. This will be discussed further with Dr. Mcmanus. This residential mortgage underwriter spoke with patient's and a family meeting has been scheduled for 06/02/18 at 11:30am. Patient stated that his son has returned to college and will be unable to attend.
[2018-06-01 20:01] VITALS: BP 129/71
[2018-06-02 07:19] VITALS: BP 121/73
[2018-06-02] MEDS ORDERED: SERTRALINE HCL50 MG PO (12:01)
--- NOTE | 2018-06-02 12:07 | Patient Discharge Instructions ---
Psych Discharge Inst General Discharge Information Reason for Admission: Depression and suicidal ideation Psy Discharge Primary Diag+ MDD single episode severe Psy Discharge Secondary Diag+ unspecified anxiety disor Summary Tests/Major Procedures Lab ALT 38 U/L 05/29/18 0204 AST 24 U/L 05/29/18 0204 Albumin 4.3 g/dL 05/29/18 0204 Albumin/Globulin Ratio 1.4 % 05/29/18 0204 Alkaline Phosphatase 65 U/L 05/29/18 0204 Anion Gap 8 05/29/18 0204 BUN 8 mg/dL L 05/29/18 0204 BUN/Creatinine Ratio 8.9 % 05/29/18 0204 Calcium 9.7 mg/dL 05/29/18 0204 Carbon Dioxide 26 mmol/L 05/29/18 0204 Chloride 105 mmol/L 05/29/18 0204 Creatinine 0.9 mg/dL 05/29/18 0204 Estimated GFR > 60 ml/min 05/29/18 0204 Globulin 3.1 gm/dL 05/29/18 0204 Glucose 90 mg/dL 05/29/18 0204 Potassium 3.5 mmol/L 05/29/18 0204 Sodium 139 mmol/L 05/29/18 0204 TSH 0.655 uIU/mL 05/29/18 0941 Total Bilirubin 0.5 mg/dL 05/29/18 0204 Total Protein 7.4 g/dL 05/29/18 0204 Hct 45.3 % 05/29/18 0204 Hgb 15.6 G/DL 05/29/18 0204 MCH 30.7 PG 05/29/18 0204 MCHC 34.5 G/DL 05/29/18 0204 MCV 89.0 FL 05/29/18 0204 Plt Count 230 /CUMM 05/29/18 0204 RBC 5.09 /CUMM 05/29/18 0204 RDW 13.1 % 05/29/18 0204 WBC 12.9 /CUMM H 05/29/18 0204 Studies Pending at MA: none Patient Instructions Contact Information Your Psychiatrist on [facility] was Yonathan VELAZCO,Melyssa * If you are experiencing an emergency related to this hospitalization, please call [phone] to contact the treating psychiatrist or the psychiatrist-on- call. * To Request a copy of your medical records, please contact the Medical Records Department at [phone]. * To request results of studies pending at the time of discharge, please call [phone]. * Continue your Medications until directed to stop by your Healthcare provider. General Medication Information Please continue to take your new medications and your continued home medications , unless otherwise indicated on your discharge medication list, or unless directed by your MD or REGISTERED ACCOUNT ADMINISTRATOR to stop them. Special Instructions Diet Regular Activity As Tolerated - Tobacco Use Treatment Offered Post DC Medications Offered: Refused Tob Medication Tx Post DC Tobacco Treatment Plan: Refused Tobacco Tx Pgm - EtOH/Drug Use D/O Treatment Offered Post DC Medications Offered: NA-No EtOH/Drug Use D/O Post DC EtOH/SubAbuse TX Plan: NA-No EtOH/Drug Use D/O Advance Directives Does the Patient have Medical Advance Directives No/Refused further info Does Pt have Psychiatric Advance Directives? No/Refused further info Does Patient have a Designated Surrogate Decision Maker: No Information About Psychiatric Advance Directives Provided? Refused Discharge Plan Post Hospital Treatment Plan: FRANCHES[facility]OP 06/03
--- NOTE | 2018-06-02 12:07 | DISCHARGE SUMMARY REPORT-PSYCH ---
Visit Information Visit Dates/Diagnosis' Admission Date: 05/29/18 Discharge Date: 06/02/18 Reason for Admission: Depression and suicidal ideation Psy Discharge Primary Diag: MDD single episode severe Psy Discharge Secondary Diag: unspecified anxiety disor Hospital Course Significant Lab Findings: Lab ALT 38 U/L 05/29/18 0204 AST 24 U/L 05/29/18 0204 Albumin 4.3 g/dL 05/29/18 0204 Albumin/Globulin Ratio 1.4 % 05/29/18 0204 Alkaline Phosphatase 65 U/L 05/29/18 0204 Anion Gap 8 05/29/18 0204 BUN 8 mg/dL L 05/29/18 0204 BUN/Creatinine Ratio 8.9 % 05/29/18 0204 Calcium 9.7 mg/dL 05/29/18 0204 Carbon Dioxide 26 mmol/L 05/29/18 0204 Chloride 105 mmol/L 05/29/18 0204 Creatinine 0.9 mg/dL 05/29/18 0204 Estimated GFR > 60 ml/min 05/29/18 0204 Globulin 3.1 gm/dL 05/29/18 0204 Glucose 90 mg/dL 05/29/18 0204 Potassium 3.5 mmol/L 05/29/18 0204 Sodium 139 mmol/L 05/29/18 0204 TSH 0.655 uIU/mL 05/29/18 0941 Total Bilirubin 0.5 mg/dL 05/29/18 0204 Total Protein 7.4 g/dL 05/29/18 0204 Hct 45.3 % 05/29/18 0204 Hgb 15.6 G/DL 05/29/18 0204 MCH 30.7 PG 05/29/18 0204 MCHC 34.5 G/DL 05/29/18 0204 MCV 89.0 FL 05/29/18 0204 Plt Count 230 /CUMM 05/29/18 0204 RBC 5.09 /CUMM 05/29/18 0204 RDW 13.1 % 05/29/18 0204 WBC 12.9 /CUMM H 05/29/18 0204 Course Allergies: Coded Allergies: No Known Allergies (05/29/18) Hospital Course/TX Response: 52-year-old male brought in by ambulance having texted his son late at night stating that suicide may be the only option. He has a history of one suicide attempt in 2004 by ingesting medication. He is not currently in treatment. The patient reported that he had been feeling increasingly worthless as he is still on who is 19 wants to spend more time with his friends and not with his family. The patient also felt that his was frustrated with him when he reached out to her for reassurance. He was not suicidal at any time during admission. Sleep and appetite were good. He was somewhat anxious. He was commenced on sertraline. Initially there was concern that he had an allergic reaction as he had some hives. However the patient explained that these were present prior to admission and interrupt frequently for unknown reasons. He declined Benadryl to help with this. Following his first dose of sertraline the patient was nauseous and vomited. He agreed to try the medication again the following day and tolerated it well. This was a 25 mg dose. The dose was increased to 50 mg for the day after discharge. On June 02 a family meeting was held with the patient's , the patient, the unit precision optical goods worker and myself. The patient requested discharge and his was in support of this. A safety plan was put in place. The patient agreed to attend the intensive outpatient program. Coping mechanisms and access to 24 hour help were discussed and the patient will be given information on this on discharge. Discharge HBIPS - Tobacco Use Treatment Offered Post DC Medications Offered: Refused Tob Medication Tx Post DC Tobacco Treatment Plan: Refused Tobacco Tx Pgm - EtOH/Drug Use D/O Treatment Offered Post DC Medications Offered: NA-No EtOH/Drug Use D/O Post DC EtOH/SubAbuse TX Plan: NA-No EtOH/Drug Use D/O Metabolic Screening - Screen if on a Neuroleptic Medication - Metabolic screening should include: - Blood Pressure, BMI, Glucose or Hgb A1c, & a - Lipid profile from within the past 365 days. Metabolic Screening () Not Applicable, patient not on a neuroleptic. OR () Patient on a neuroleptic(s) . Enter below results for Hemoglobin A1C, and lipid panel if obtained during the last 365 days. BMI: 24.200 Blood Pressure: 121/[address] [facility] (If applicable): Discharge Instructions General Discharge Information Multiple Neuroleptics: () Not Applicable OR Document below three failed attempts at monotherapy, or a plan to taper to monotherapy, or augmentation of Clozapine. () Discharge Diet Regular Discharge Activity As Tolerated DC Disposition: The patient is being discharged home with follow-up at [facility] Prescriptions Start taking the following new medications: Sertraline HCl (Sertraline HCl) 50 MG TABLET 1 Tablet ORAL DAILY Qty = 15 No Refills Studies Pending at Discharge none Copies To: .
--- NOTE | 2018-06-02 16:39 | SOCIAL WORKER PROG NOTE PSYCH ---
Social Work Progress Note Progress Note This job specification writer met with patient. He reported improved mood. He was still unsure about attending IOP due to his work schedule and would like to discuss this furhter during the family meeting. 11:30am Dr. Mcmanus and this job specification writer met with the patient and his for a family meeting. Patient expressed interested in discharging today and stated that he felt safe to do so. Dr. Mcmanus discussed treatment and progress that the patient had made while on the unit. She also addressed medication questions and concerns. Patient's identified a goal to utilize the family meeting to "plan a safe discharge." Patient denied any thoughts to hang himself and denied any other SI. He denied HI/hallucinations. We talked about outpatient treatment, specifically IOP and scheduling. Patient stated that he would be able to attend a morning or afternoon IOP and organize his work schedule to avoid a scheduling conflict. Patient and his were informed of the crisis numbers and warm lines, to which the patient identified them to use as a safety plan. He also identified coping skills such as walking and praying. Patient and his confirmed that there are no guns in the home. They were both agreeable that this is a safe discharge and for the patient to discharge today and patient will be provided with a [facility] intake appointment this afternoon. Patient's will provide transportation home from the hospital later this afternoon. Upon making a referral to [facility], this job specification writer provided the patient with an intake appointment of 1:15pm tomorrow, 06/03/19, which he accepted. He was also informed of the smoking cessation group schedule. Patient stated that he has transportation to [facility] tomorrow and will speak with his employer about his work schedule. Faxed Referral(s) Referred To: [facility] Transition of Care Documents sent: Health Summary Faxed to: [facility] Fax #: [phone] Faxed by: Manny Cristobal LCSW Date faxed: 06/02/18 Time Faxed: [phone]
--- NOTE | 2018-06-03 11:25 | SOCIAL WORKER PROG NOTE PSYCH ---
Social Work Progress Note Progress Note Zoe/Krys #[phone] - provided discharge clinical and requested AUTH for IOP. ASked for Phoebe to please call back with inpatient AUTH and IOP AUTH. IOP will need to be informed of the number of IOP days and the AUTH number/ contact.
--- NOTE | 2018-06-03 11:40 | SOCIAL WORKER PROG NOTE PSYCH ---
Social Work Progress Note Progress Note Faxed Transfer Summary to [facility].
== END 2018-06-02 17:56 | DRG 881 ==
LOC: ERH 01:38 → ERHI 08:31 → CP SOUTH 08:31 → ENTRNSPT 10:18 → EDTRNSPTSTS 10:21 → CP SOUTH 10:31 → CMPTRNSPT 10:32 → CP SOUTH 10:54
PROVIDERS: Pediatrics
DX: F32.9 Major depressive disorder, single episode, unspecified (principal); F41.9 Anxiety disorder, unspecified
CPT/HCPCS: 80307; 93005; 93010; G0480; J3101